=== PATIENT | male | born 1970 | race Caucasian/White ===

== ENCOUNTER 2017-01-08 08:32 | Emergency (ER) | payer SELFPAY ==
[2017-01-08 08:38] VITALS: TEMP 98.3
[2017-01-08] MEDS ORDERED: Sodium Chloride 0.9% 1,000 ML IV ONE (08:56)
[2017-01-08] MEDS ORDERED: Sodium Chloride 0.9% 1,000 ML ONE (09:07)
--- NOTE | 2017-01-08 09:15 | RAD ---
HISTORY: CP COMPARISON: None available. TECHNIQUE: Chest, one view. FINDINGS: LUNGS: No focal consolidation. Please note that chest x-ray has limited sensitivity for the detection of pulmonary masses. PLEURA: No significant pleural effusion identified. No definite pneumothorax . CARDIOVASCULAR: The cardiomediastinal silhouette appears within normal limits of size. OSSEOUS STRUCTURES: No acute osseous abnormality identified. VISUALIZED UPPER ABDOMEN: Unremarkable. OTHER FINDINGS: None. IMPRESSION: No focal consolidation, significant pleural effusion, or definite pneumothorax identified.
[2017-01-08 09:17] LABS: BASO % 0.3 % (0.0-2.0); HEMATOCRIT 39.7 % (35.0-51.0); LYMPH # 1.4 K/uL (1.0-4.3); LYMPH % 9.5 % (20.0-40.0); MEAN CELL VOLUME 92.7 fL (80.0-94.0); MEAN CORPUSCULAR HEMOGLOBIN 30.7 pg (27.0-31.0); MEAN CORPUSCULAR HGB CONC 33.1 g/dL (33.0-37.0); MEAN PLATELET VOLUME 7.2 fL (7.2-11.7); MONO # 0.9 K/uL (0.0-0.8); NRBC % 0.1 % (0.0-2.0); PLATELET COUNT 440 K/uL (130-400); RED CELL DISTRIBUTION WIDTH 15.3 % (11.5-14.5); WHITE BLOOD COUNT 15.2 K/uL (4.8-10.8)
[2017-01-08 09:27] LABS: CHLORIDE 95 mmol/L (98-107); SODIUM 141 mmol/L (132-148)
[2017-01-08 09:28] LABS: POTASSIUM 5.1 mmol/L (3.6-5.2)
[2017-01-08 09:30] LABS: ALB/GLOB RATIO 1.2 (1.0-2.1); ALKALINE PHOSPHATASE 143 U/L (38-126); ALT/SGPT 79 U/L (21-72); AST/SGOT 136 U/L (17-59); BILIRUBIN,TOTAL 1.4 mg/dL (0.2-1.3); BLOOD UREA NITROGEN 16 mg/dL (9-20); CARBON DIOXIDE 16 mmol/L (22-30); GFR AFRICAN-AMERICAN > 60; GLUCOSE,RANDOM 118 mg/dL (75-110); TOTAL PROTEIN 8.4 g/dL (6.3-8.3)
[2017-01-08 09:31] LABS: CALCIUM 9.6 mg/dl (8.6-10.4)
[2017-01-08 09:48] LABS: NEUTROPHIL 78 % (50-75); REACTIVE LYMPHOCYTES 1 % (0-0); TOTAL CELLS COUNTED 100
[2017-01-08 10:11] LABS: THYROID STIMULATING HORMONE 0.77 mIU/L (0.46-4.68)
[2017-01-08 10:12] LABS: RBC URINE < 1 /hpf (0-3); URINE BILIRUBIN NEGATIVE (NEGATIVE); URINE BLOOD NEGATIVE (NEGATIVE); URINE COLOR Yellow (YELLOW); URINE GLUCOSE (UA) NORMAL (Normal); URINE KETONE 1+ mg/dL (NEGATIVE); URINE LEUKOCYTE ESTERASE NEG Leu/uL (Negative); URINE PROTEIN NEGATIVE (NEGATIVE); URINE UROBILINOGEN NORMAL mg/dL (0.2-1.0); WBC URINE < 1 /hpf (0-5)
[2017-01-08 10:14] VITALS: BP 110/71
--- NOTE | 2017-01-08 10:39 | C.PDOC ---
History Of Present Illness 46 year old male, with PMHx of anxiety, presents to Emergency Department for evaluation of chest pain associated with shortness of breath since early this morning. Pt also reports sensation of his heart racing associated with nausea and vomiting. Pt reports having similar symptoms previously when he was anxious. Pt states he takes medication for his anxiety, but has ran out and is unable to recall the name of anxiety medication. He denies any other past medical history, denies cough, abdominal pain, diarrhea, fever, or drug use. Time Seen by Provider: 01/08/17 08:41 Chief Complaint (Nursing): Chest Pain History Per: Patient History/Exam Limitations: no limitations Onset/Duration Of Symptoms: Hrs Current Symptoms Are (Timing): Still Present Quality: "Pain" Associated Symptoms: Nausea. denies: Diaphoresis, Syncope Modifying Factors: None Exacerbating Factors: None Alleviating Factors: None Additional History Per: Patient Past Medical History Reviewed: Historical Data, Nursing Documentation, Vital Signs Vital Signs: Last Vital Signs Temp 98.3 F 01/08/17 08:37 Pulse 110 H 01/08/17 12:03 Resp 16 01/08/17 12:03 BP 110/71 01/08/17 12:03 Pulse Ox 100 01/08/17 12:15 - Medical History PMH: Anxiety Surgical History: No Surg Hx Family History: States: No Known Family Hx - Social History Hx Alcohol Use: Yes Hx Substance Use: No - Immunization History Hx Tetanus Toxoid Vaccination: No Hx Influenza Vaccination: No Hx Pneumococcal Vaccination: No Review Of Systems Except As Marked, All Systems Reviewed And Found Negative. Constitutional: Negative for: Fever, Chills Cardiovascular: Positive for: Chest Pain, Palpitations ("heart racing"). Negative for: Edema, Light Headedness Respiratory: Positive for: Shortness of Breath. Negative for: Cough, Hemoptysis Gastrointestinal: Positive for: Nausea, Vomiting. Negative for: Abdominal Pain , Diarrhea Psych: Positive for: Anxiety Physical Exam - Physical Exam Appears: Well, Non-toxic, Other (uncomfortable & anxious appearing) Skin: Normal Color, Warm, Dry Head: Normacephalic Eye(s): bilateral: Normal Inspection Oral Mucosa: Moist Neck: Supple Chest: Symmetrical, No Tenderness Cardiovascular: Rhythm Regular (tachycardic), No Murmur Respiratory: Normal Breath Sounds, No Rales, No Rhonchi, No Wheezing Gastrointestinal/Abdominal: Normal Exam, Bowel Sounds, Soft, No Tenderness Extremity: Normal ROM, No Pedal Edema, No Calf Tenderness Extremity: Left: Atraumatic, Normal ROM Neurological/Psych: Oriented x3, Normal Speech, Normal Cognition ED Course And Treatment - Laboratory Results Result Diagrams: 01/08/17 09:06 01/08/17 09:06 ECG: Interpreted By Me, Viewed By Me (sinus tachycardia 116 bpm, nromal axis, no acute ST/T wave changes) ECG Interpretation: Abnormal O2 Sat by Pulse Oximetry: 100 (on RA) Pulse Ox Interpretation: Normal - Other Rad CXR X-Ray: Viewed By Me, Read By Radiologist Interpretation: FINDINGS: LUNGS: No focal consolidation. Please note that chest x-ray has limited sensitivity for the detection of pulmonary masses. PLEURA: No significant pleural effusion identified. No definite pneumothorax . CARDIOVASCULAR: The cardiomediastinal silhouette appears within normal limits of size. OSSEOUS STRUCTURES: No acute osseous abnormality identified. VISUALIZED UPPER ABDOMEN: Unremarkable. OTHER FINDINGS: None. IMPRESSION: No focal consolidation, significant pleural effusion, or definite pneumothorax identified. - CT Scan/US Angio CT Other Rad Studies (CT/US): Read By Radiologist, Radiology Report Reviewed CT/US Interpretation: PROCEDURE: CT Chest with contrast (Pulmonary Angiogram). HISTORY: chest pain, sob, elevated ddimer. COMPARISON: None available. TECHNIQUE: Axial computed tomography images were obtained of the chest in the pulmonary arterial phase of enhancement. Coronal and sagittal reformatted images were created and reviewed. Intravenous contrast dose: 100 mL Visipaque 320. Radiation dose: Total exam DLP = 260.85 mGy-cm. This CT exam was performed using one or more of the following dose reduction techniques: Automated exposure control, adjustment of the mA and/or kV according to patient size, and/or use of iterative reconstruction technique. FINDINGS: PULMONARY ARTERIES: Unremarkable. No pulmonary embolism. AORTA: There is mild dietitian of the ascending thoracic aorta measures up to 3.8 centimeter in the transverse diameter. No evidence of aortic dissection. LUNGS: Unremarkable. No nodule, mass or pulmonary consolidation. PLEURAL SPACES: Unremarkable. No effusion or pneuomothorax. HEART: Unremarkable. No cardiomegaly. No significant pericardial effusion. LYMPH NODES: No lymphadenopathy. BONES, CHEST WALL: Unremarkable. No fracture or destructive lesion. OTHER FINDINGS: There is diffuse thickening of the esophagus noted suspicious for esophagitis. The scan through the upper abdomen demonstrate moderate hepatic steatosis. IMPRESSION: No evidence of pulmonary embolus. No evidence of acute pulmonary disease. [id number] diffuse thickening of the esophagus suspicious for esophagitis. Moderate hepatic steatosis. Progress Note: Plan: Blood work, CXR, EKG, UA, UDs ordered and reviewed. D- dimer elevated, CTA chest ordered. Patient given IV NS bolus, IV ativan, IV zofran, PO tylenol. Reevaluation Time: 12:10 Reassessment Condition: Improved (On reassessment, patient is resting comfortably and states he feels much better. CTA chest (-) for PE, but shows evidence of esophagitis - likely the cause for patient's pain. Explained to patient he needs further evaluation by GI as outpatient. Vitals have improved and patient is well appearing and comfortable being discharged. He states he has PMD and psychiatrist in [place], and plans to follow up with both. Rxs given for Xanax, zofran, protonix, and follow up info given for GI specialist. Patient understands he should return to [facility] if he develops any concerning symptoms.) Medical Decision Making Medical Decision Making: No cardiac risk factors - (-) for DM, HTN, hyperlipidemia, tobacco use, family history CAD/MT Disposition Counseled Patient/Family Regarding: Studies Performed, Diagnosis, Need For Followup, Rx Given - Disposition Referrals: Rick Gayle MD [Staff Provider] - [facility] [Outside] Disposition: HOME/ ROUTINE Disposition Time: 12:15 Condition: STABLE Additional Instructions: FOLLOW UP WITH GI SPECIALIST WITHIN 1 WEEK USE MEDICATIONS DIRECTED RETURN TO ER IF SYMPTOMS WORSEN Prescriptions: ALPRAZolam [Xanax] 0.25 mg PO Q6 PRN #15 tab PRN Reason: Anxiety Ondansetron [Zofran Odt] 4 mg PO Q8 PRN #15 odt PRN Reason: Nausea/Vomiting Pantoprazole [Protonix EC Tab] 20 mg PO DAILY #30 ect Instructions: Esophagitis (ED) Forms: [facility] (Kyrgyz) Print Language: ROMANIAN - POA Present On Arrival: None - Clinical Impression Clinical Impression: Anxiety, Esophagitis, Chest pain, non-cardiac - Scribe Statement The provider has reviewed the documentation as recorded by the Scribe Kripal Becerril All medical record entries made by the Jack were at my direction and personally dictated by me. I have reviewed the chart and agree that the record accurately reflects my personal performance of the history, physical exam, medical decision making, and the department course for this patient. I have also personally directed, reviewed, and agree with the discharge instructions and disposition.
[2017-01-08] MEDS ORDERED: Iodixanol 320 MG/ML 100 ML BOTTLE IV ONE (10:56)
--- NOTE | 2017-01-08 11:50 | CT ---
PROCEDURE: CT Chest with contrast (Pulmonary Angiogram) HISTORY: chest pain, sob, elevated ddimer COMPARISON: None available. TECHNIQUE: Axial computed tomography images were obtained of the chest in the pulmonary arterial phase of enhancement. Coronal and sagittal reformatted images were created and reviewed. Intravenous contrast dose: 100 mL Visipaque 320 Radiation dose: Total exam DLP = 260.85 mGy-cm. This CT exam was performed using one or more of the following dose reduction techniques: Automated exposure control, adjustment of the mA and/or kV according to patient size, and/or use of iterative reconstruction technique. FINDINGS: PULMONARY ARTERIES: Unremarkable. No pulmonary embolism. AORTA: There is mild dietitian of the ascending thoracic aorta measures up to 3.8 centimeter in the transverse diameter. No evidence of aortic dissection. LUNGS: Unremarkable. No nodule, mass or pulmonary consolidation. PLEURAL SPACES: Unremarkable. No effusion or pneuomothorax. HEART: Unremarkable. No cardiomegaly. No significant pericardial effusion. LYMPH NODES: No lymphadenopathy. BONES, CHEST WALL: Unremarkable. No fracture or destructive lesion OTHER FINDINGS: There is diffuse thickening of the esophagus noted suspicious for esophagitis. The scan through the upper abdomen demonstrate moderate hepatic steatosis. IMPRESSION: No evidence of pulmonary embolus. No evidence of acute pulmonary disease. [id number] diffuse thickening of the esophagus suspicious for esophagitis. Moderate hepatic steatosis.
[2017-01-08 12:05] VITALS: PULSE 110; RESP 16
[2017-01-08 12:14] VITALS: O2SAT 100
--- NOTE | 2017-01-10 09:24 | CARD ---
APPROVED REPORT EKG Measurement Heart [id number] <Conclusion> Sinus tachycardia Voltage criteria for left ventricular hypertrophy Abnormal ECG
== END 2017-01-08 12:27 | disposition home or self-care (01) ==
LOC: C.ER 08:32
DX: R07.89 Other chest pain (principal); K20.9 Esophagitis, unspecified; F41.9 Anxiety disorder, unspecified
CPT/HCPCS: 71010; 71275; 80053; 81001; 82550; 82553; 84443; 84484; 85025; 85378; 93005; 96361; 96374; 96375; 99285; G0480; J2060; J2405; J7040; Q9967